=== PATIENT | female | born 1990 | race Two or more races ===

== ENCOUNTER 2016-09-16 09:28 | Emergency (ER) | payer SELFPAY ==
[~2016-09-16] VITALS: Ht 162.6 cm; Wt 59.4 kg
[~2016-09-16 09:28] MED LIST: PREN-96 PO
[2016-09-16 10:34] VITALS: BP 116/57
== END 2016-09-16 11:32 | disposition home or self-care (01) ==
LOC: ER 09:44
DX: S09.90XA Unspecified injury of head, initial encounter (principal); F41.9 Anxiety disorder, unspecified; Z90.89 Acquired absence of other organs
CPT/HCPCS: 70450; 81025

== ENCOUNTER 2018-06-14 16:54 | Emergency (ER) | payer SELFPAY ==
[~2018-06-14] VITALS: Ht 149.9 cm; Wt 62.6 kg
[2018-06-14 17:15] VITALS: BP 109/71
[2018-06-14] MEDS ORDERED: cefTRIAXone SOD 1,000 MG VL IM ONE (19:15)
[2018-06-14] MEDS ORDERED: methylPREDNISolone SOD SUCC 125 MG/2 ML VL IM ONE (19:15)
[2018-06-14] MEDS ORDERED: BENZOCAINE (DENTAL) 20 % SPRAY 60ML MT ONE (19:15)
== END 2018-06-14 21:06 | disposition home or self-care (01) ==
LOC: ER 16:59
DX: S03.00XA Dislocation of jaw, unspecified side, initial encounter (principal); G50.0 Trigeminal neuralgia; K02.9 Dental caries, unspecified; F41.9 Anxiety disorder, unspecified; X58.XXXA Exposure to other specified factors, initial encounter; Y93.89 Activity, other specified; Y92.89 Other specified places as the place of occurrence of the external cause; Y99.8 Other external cause status
CPT/HCPCS: 64400; 70450; 96372; 99284; J0696; J2930